=== PATIENT | male | born 1965 | race Caucasian/White ===

== ENCOUNTER 2017-08-24 14:04 | Emergency (ER) | payer OTHER ==
--- NOTE | 2017-08-24 14:56 | EDPHY ---
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 Reports prior history of strictures and resultant low grade obstructions in the past. Has had a number of prior surgeries and typically feels obstruction develops in mid right quadrant. Pain was moderate to severe yesterday, but today he started to pass gas and feels the obstruction may be resolving. Vomited x 2 yesterday. No fever. No bloody diarrhea. Tolerating fluids but feels dehydrated. He last urinated this morning at 9:00 AM. At that time his urine was very concentrated. He reports his abdomen is soft and less distended than previously. He denies bloody stools, dark or tarry stools, or any other associated symptoms. No fever, chills, chest pain, shortness of breath, palpitations, urinary complaints, headache, lightheadedness. REVIEW OF SYSTEMS: Aside from elements discussed in the HPI, a comprehensive 10-point review of systems was reviewed and is negative. 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 Very pleasant, no obvious distress. GENERAL: Well-developed, well-nourished. HEENT: Atraumatic. Eyes: No icterus, no injection. Mouth: Slightly dry moist mucous membranes. No erythema or lesions. Neck: supple with no adenopathy. LUNGS: Clear to auscultation bilaterally, no wheezes, rhonchi or rales. CARDIAC: Regular rate and rhythm, no rubs, murmurs or gallops. ABDOMEN: Soft, no guarding or rebound. Slightly distended abdomen. Decreased bowel sounds. Midline and RLQ scars. BACK: No CVA tenderness. EXTREMITIES: No trauma. No edema. Range of motion is normal throughout. NEURO: Alert and oriented, grossly nonfocal. SKIN: Warm and dry, no rash. PSYCHIATRIC: Normal mentation, no agitation. ED Course: The patient presents with c/o dehydration after a flare of Crohns disease with partial bowel obstruction. He has frequent obstructions secondary to strictures from surgeries for Crohn's disease and colon cancer. He usually recovers without intervention by pushing fluids after he is able to pass gas. He was able to pass gas this morning and started pushing fluids but felt he was not hydrating well. He last urinated at 9:00 AM, and produced very concentrated urine. Plan for abdominal x-ray, 2 L NS fluids, CBC, and basic metabolic panel. Solumedrol given. Xray demonstrates significant AF levels and dilated loops of bowel. Reviewed film with patient and discussed findings suspicious for a moderate SBO. Patient reports feeling better with the fluids and also significantly improved from yesterday. Is passing gas and tolerating po's He would prefer not to under go further imaging but rather to start clear liquids, bland diet, and to follow up with his GI doctor early next week. Certainly understands risks/benefits of this plan. Reasonable approach given patients prior history. Will dc with 3 days of prednisone and close followup. Return if needed. MDM: Diff dx considered included bowel obstruction, toxic megacolon, crohns flare, volvulus, ileus. - Data Points Imaging Results: Imaging Impressions Abdomen X-Ray 08/24/17 15:16 Impression: 1. Moderate SBO. Consider CT abdomen and pelvis with IV contrast to better localize point of obstruction. Imaging: I viewed and interpreted images myself Laboratory Results: Laboratory Results 08/24/17 14:32 08/24/17 14:32 08/24/17 08/24/17 14:32 14:32 WBC 9.34 10^3/uL 10^3/uL (3.80-9.50) RBC 6.18 10^6/uL 10^6/uL (4.40-6.38) Hgb 18.7 g/dL H g/dL (13.7-17.5) Hct 53.8 % H % (40.0-51.0) MCV 87.1 fL fL (81.5-99.8) MCH 30.3 pg pg (27.9-34.1) MCHC 34.8 g/dL g/dL (32.4-36.7) RDW 13.2 % % (11.5-15.2) Plt Count 189 10^3/uL 10^3/uL (150-400) MPV 10.4 fL fL (8.7-11.7) Neut % (Auto) 82.9 % H % (39.3-74.2) Lymph % (Auto) 8.5 % L % (15.0-45.0) [place] % (Auto) 8.0 % % (4.5-13.0) Eos % (Auto) 0.2 % L % (0.6-7.6) Baso % (Auto) 0.2 % L % (0.3-1.7) Nucleat RBC Rel Count 0.0 % % (0.0-0.2) Absolute Neuts (auto) 7.74 10^3/uL H 10^3/uL (1.70-6.50) Absolute Lymphs (auto) 0.79 10^3/uL L 10^3/uL (1.00-3.00) Absolute Monos (auto) 0.75 10^3/uL 10^3/uL (0.30-0.80) Absolute Eos (auto) 0.02 10^3/uL L 10^3/uL (0.03-0.40) Absolute Basos (auto) 0.02 10^3/uL 10^3/uL (0.02-0.10) Absolute Nucleated RBC 0.00 10^3/uL 10^3/uL (0-0.01) Immature Gran % 0.2 % % (0.0-1.1) Immature Gran # 0.02 10^3/uL 10^3/uL (0.00-0.10) Sodium 140 mEq/L mEq/L (135-145) Potassium 4.5 mEq/L mEq/L (3.3-5.0) Chloride 100 mEq/L mEq/L (97-110) Carbon Dioxide 26 mEq/l mEq/l (22-31) Anion Gap 14 mEq/L mEq/L (8-16) BUN 20 mg/dL mg/dL (7-23) Creatinine 1.2 mg/dL mg/dL (0.7-1.3) Estimated GFR > 60 Glucose 105 mg/dL H mg/dL (70-100) Calcium 10.2 mg/dL mg/dL (8.5-10.4) Medications Given: Discontinued Medications Sodium Chloride (Ns) 2,000 mls @ 0 mls/hr IV ONCE ONE PRN Reason: Wide Open Stop: 08/24/17 15:13 Last Admin: 08/24/17 15:13 Dose: 2,000 mls Methylprednisolone Sodium Succinate (Solu-Medrol) 125 mg IVP EDNOW ONE Stop: 08/24/17 15:06 Last Admin: 08/24/17 15:11 Dose: 125 mg General Time Seen by Provider: 08/24/17 14:35 Initial Vital Signs: Initial Vital Signs Temperature (C) 36.7 C 08/24/17 14:19 Heart Rate 96 08/24/17 14:19 Respiratory Rate 16 08/24/17 14:19 Blood Pressure 122/84 H 08/24/17 14:19 O2 Sat (%) 96 08/24/17 14:19 O2 Delivery Mode Room Air Allergies/Adverse Reactions: No Known Allergies Allergy (Unverified 08/24/17 14:18) Home Medications: Medication Instructions Recorded [facility] 08/24/17 predniSONE 40 mg PO DAILY #6 tab 08/24/17 Departure - Departure Disposition: Home, Routine, Self-Care Clinical Impression: Partial small bowel obstruction Abdominal pain Qualifiers: Abdominal location: generalized Qualified Code(s): R10.84 - Generalized abdominal pain Crohn's disease Qualifiers: Gastrointestinal tract location: unspecified location Digestive disease complication type: with intestinal obstruction Qualified Code(s): K50.912 - Crohn's disease, unspecified, with intestinal obstruction Condition: Good Instructions: Prednisone (By mouth), Crohn Disease (ED), Bowel Obstruction (ED) , Ileus (ED) Additional Instructions: Your x-ray demonstrates relatively significant air-fluid levels and bowel dilatation. I would encourage you to begin with a liquid diet only until your symptoms are improving. Please take the prednisone as directed. 40 mg daily for the next 3 days. Return to the emergency department or seek care urgently if your symptoms are worsening, especially if you develop fever, increased pain, increased abdominal distention, vomiting, or other concerns. Referrals: NONE *PRIMARY CARE P,. [Primary Care Provider] - As per Instructions Prescriptions: predniSONE 40 mg PO DAILY #6 tab Report Scribed for: Bailee Garcia Report Scribed by: Faith Foley Date of Report: 08/24/17 Time of Report: 14:57 Physician Review and Approval Statement: Portions of this note were transcribed by a director [employer] medical [employer]. I personally performed a history, physical exam, medical decision making, and confirmed accuracy of information the transcribed note.
[2017-08-24] MEDS ORDERED: methylPREDNISolone SOD SUCC 125 MG/2 ML VIAL IVP ONE (15:05)
[2017-08-24 15:12] LABS: PLATELET COUNT 189 10^3/uL (150-400)
[2017-08-24] MEDS ORDERED: NS 2,000 ML IV ONE (15:12)
[2017-08-24 15:48] VITALS: BP 124/77
== END 2017-08-24 16:42 | disposition home or self-care (01) ==
DX: K50.912 Crohn's disease, unspecified, with intestinal obstruction (principal); K56.600 Partial intestinal obstruction, unspecified as to cause; Z85.038 Personal history of other malignant neoplasm of large intestine
CPT/HCPCS: 96374; J2930